=== PATIENT | female | born 1995 | race Caucasian/White ===

== ENCOUNTER 2024-01-05 12:01 | Emergency (ER) | payer MEDICAID ==
[~2024-01-05] VITALS: Ht 165.1 cm; Wt 87.0 kg
[2024-01-05 12:13] VITALS: O2SAT 99
[2024-01-05] MEDS: ONDANSETRON HCL 4MG/2ML INJ IV STA (12:38)
[2024-01-05] MEDS: SODIUM CHLORIDE 0.9% 1,000 ML IV ONE ×2 (12:53→14:55)
[2024-01-05 13:02] LABS: BASOPHILS % 0.1 % (0.0-2.0); DIFFERENTIAL COMMENT 0; HEMATOCRIT. 38.9 % (36.0-48.0); HEMOGLOBIN. 12.2 g/dL (12.0-16.0); LYMPHOCYTES % 17.7 % (20.0-50.0); MEAN CORPUSCULAR HEMOGLOBIN 25.1 pg (28.0-32.0); MEAN CORPUSCULAR HGB CONC 31.4 g/dL (31.0-37.0); MEAN CORPUSCULAR VOLUME 79.8 fL (81.0-99.0); MEAN PLATELET VOLUME 9.3 fl (7.4-10.4); MONOCYTES % 3.6 % (2.0-8.0); NEUTROPHILS % 77.6 % (40.0-76.0); PLATELET 329 x1000/uL (130-400); RED BLOOD CELL COUNT 4.87 mill/uL (4.2-5.4); WHITE BLOOD COUNT 9.5 x1000/uL (4.5-11.0)
[2024-01-05 13:12] LABS: CHLORIDE 105 mEq/L (98-107); POTASSIUM 4.3 mEq/L (3.5-5.1); SODIUM 139 mEq/L (136-145)
[2024-01-05 13:13] LABS: CALCIUM 9.8 mg/dL (8.7-10.4); CARBON DIOXIDE 20 mEq/L (21-32)
[2024-01-05 13:18] LABS: CREATININE 0.8 mg/dL (0.6-1.0); GLUCOSE 122 mg/dL (70-105); UREA NITROGEN BLOOD 8 mg/dL (9-23)
[2024-01-05 13:20] LABS: ALANINE AMINOTRANSFERASE 13 IU/L (10-49); ALBUMIN 4.5 g/dL (3.2-4.8); ASPARTATE AMINOTRANSFERASE 27 IU/L (<34); BILIRUBIN TOTAL 0.5 mg/dL (0.1-1.0); PROTEIN TOTAL 8.2 g/dL (6.0-8.3)
[2024-01-05] MEDS: KETOROLAC 30MG/ML VIAL IV STA (13:37)
[2024-01-05] MEDS: FAMOTIDINE 20MG/2ML VIAL IV ONE (13:38)
[2024-01-05 14:00] LABS: CLARITY URINE CLOUDY (CLEAR); COLOR URINE YELLOW (YELLOW); GLUCOSE URINE NEGATIVE (NEGATIVE); KETONES URINE 4+ (NEGATIVE); LEUKOCYTE ESTERASE URINE TRACE (NEGATIVE); NITRITE URINE NEGATIVE (NEGATIVE); OCCULT BLOOD URINE NEGATIVE (NEGATIVE); PH URINE 6.5 (4.5-8.0); PROTEIN URINE 1+ (NEGATIVE); SPECIFIC GRAVITY URINE 1.032 (1.005-1.030); UROBILINOGEN URINE 0.2 E.U./dL (0.2-1.0)
[2024-01-05 14:21] LABS: BACTERIA URINE 4+; MUCUS URINE 1+ /lpf (< = 2+); SQUAMOUS EPITHELIAL CELL URINE 3+ /lpf (RARE/1+)
[2024-01-05 14:22] LABS: WBC URINE 0-2 /hpf (0-2)
[2024-01-05 14:23] LABS: RBC URINE 0-2 /hpf (0-2)
[2024-01-05] MEDS: METOCLOPRAMIDE HCL 10MG/2ML VIAL IV ONE (14:54)
[2024-01-05 16:28] VITALS: BP 142/72; PULSE 72; RESP 20; TEMP 98.2
== END 2024-01-05 16:31 | disposition home or self-care (01) ==
LOC: ER 12:45
DX: R10.9 Unspecified abdominal pain (principal); R11.2 Nausea with vomiting, unspecified; R19.7 Diarrhea, unspecified
CPT/HCPCS: 80053; 81003; 81025; 83690; 85025; 36415; 96361; 96374; 96375; 99284; J3490; J1885; J2765; J2405; J7030; Z7610 ×4

== ENCOUNTER 2024-06-01 10:22 | Emergency (ER) | payer MEDICAID ==
[~2024-06-01] VITALS: Ht 165.1 cm; Wt 108.0 kg
[2024-06-01 10:33] VITALS: O2SAT 100
[2024-06-01 11:09] LABS: CLARITY URINE CLEAR (CLEAR); COLOR URINE YELLOW (YELLOW); GLUCOSE URINE NEGATIVE (NEGATIVE); KETONES URINE NEGATIVE (NEGATIVE); LEUKOCYTE ESTERASE URINE NEGATIVE (NEGATIVE); NITRITE URINE NEGATIVE (NEGATIVE); OCCULT BLOOD URINE NEGATIVE (NEGATIVE); PROTEIN URINE 1+ (NEGATIVE); SPECIFIC GRAVITY URINE 1.025 (1.005-1.030); UROBILINOGEN URINE 0.2 E.U./dL (0.2-1.0)
[2024-06-01 11:32] LABS: BASOPHILS % 0.7 % (0.0-2.0); HEMATOCRIT. 38.9 % (36.0-48.0); HEMOGLOBIN. 12.2 g/dL (12.0-16.0); LYMPHOCYTES % 41.5 % (20.0-50.0); MEAN CORPUSCULAR HEMOGLOBIN 25.6 pg (28.0-32.0); MEAN CORPUSCULAR HGB CONC 31.3 g/dL (31.0-37.0); MEAN CORPUSCULAR VOLUME 81.6 fL (81.0-99.0); MEAN PLATELET VOLUME 9.3 fl (7.4-10.4); MONOCYTES % 6.7 % (2.0-8.0); NEUTROPHILS % 47.1 % (40.0-76.0); PLATELET 271 x1000/uL (130-400); RED BLOOD CELL COUNT 4.78 mill/uL (4.2-5.4); RED CELL DISTRIBUTION WIDTH 16.3 % (11.6-14.6)
[2024-06-01 11:33] LABS: CHLORIDE 107 mEq/L (98-107); POTASSIUM 4.4 mEq/L (3.5-5.1)
[2024-06-01 11:34] LABS: SODIUM 140 mEq/L (136-145)
[2024-06-01 11:35] LABS: CALCIUM 9.6 mg/dL (8.7-10.4); CARBON DIOXIDE 24 mEq/L (21-32)
[2024-06-01 11:40] LABS: CREATININE 0.7 mg/dL (0.6-1.0); GLUCOSE 94 mg/dL (70-105); UREA NITROGEN BLOOD 7 mg/dL (9-23)
[2024-06-01 11:42] LABS: MUCUS URINE 3+ /lpf (< = 2+); SQUAMOUS EPITHELIAL CELL URINE 3+ /lpf (RARE/1+)
[2024-06-01 11:43] LABS: BACTERIA URINE 1+; RBC URINE 0-2 /hpf (0-2)
[2024-06-01 11:49] LABS: PROTHROMBIN TIME 11.1 sec (9.6-11.0)
[2024-06-01 14:17] LABS: ALANINE AMINOTRANSFERASE 12 IU/L (10-49); ALBUMIN 4.2 g/dL (3.2-4.8); ASPARTATE AMINOTRANSFERASE 19 IU/L (<34); BILIRUBIN DIRECT 0.1 mg/dL (<=3.0); BILIRUBIN TOTAL 0.4 mg/dL (0.1-1.0); PROTEIN TOTAL 7.3 g/dL (6.0-8.3)
[2024-06-01] MEDS ORDERED: CEPH500C2 MT (14:31)
[2024-06-01 14:47] VITALS: BP 138/78; PULSE 89; RESP 18; TEMP 36.72516; O2SAT 100
[2024-06-01 15:35] LABS: B-HCG QUANTITATIVE 11535 mIU/mL (<3)
== END 2024-06-01 14:49 | disposition home or self-care (01) ==
LOC: ER 10:22
DX: O20.9 Hemorrhage in early pregnancy, unspecified (principal); Z3A.01 Less than 8 weeks gestation of pregnancy
CPT/HCPCS: 36415; 76801; 80048; 80076; 81003; 81025; 84702; 85025; 86850; 86900; 99284

== ENCOUNTER 2024-06-03 06:39 | Emergency (ER) | payer MEDICAID ==
[~2024-06-03] VITALS: Ht 165.1 cm; Wt 108.3 kg
[~2024-06-03 06:39] MED LIST: CEPH500C2 MT
[2024-06-03 06:42] VITALS: TEMP 98.3; O2SAT 99
[2024-06-03 08:58] LABS: HCG SCREEN POSITIVE
[2024-06-03 11:48] VITALS: BP 135/76; PULSE 97; RESP 19; O2SAT 99
== END 2024-06-03 11:49 | disposition home or self-care (01) ==
LOC: ER 06:39
DX: O20.9 Hemorrhage in early pregnancy, unspecified (principal); Z3A.01 Less than 8 weeks gestation of pregnancy
CPT/HCPCS: 81025; 84703; 84702; 36415; 99283; Z7610